=== PATIENT | female | born 1970 | race Caucasian/White ===

== ENCOUNTER 2020-01-21 06:35 | Outpatient (CLI) | payer OTHER, SELFPAY ==
--- NOTE | ~2020-01-21 | MR_ITS ---
EXAMINATION: MR knee RT wo con DATE: 01/21/2020 07:53 INDICATION: Right knee pain TECHNIQUE: Magnetic resonance imaging (MRI) of the right knee was performed without intravenous contr ast. Sequences included coronal PD-weighted FSE, coronal PD-weighted FS FSE, sagittal T2-weighted FS E, sagittal PD-weighted FS FSE and axial PD weighted fat saturated FSE. COMPARISON: None. FINDINGS: Medial compartment: Medial meniscus is normal. Articular cartilage is normal. Lateral compartment: Linear increased signal extending to the inferior articular surface near the free edge of the body of the lateral meniscus which is seen on only a single image not meeting strict criteria for tear in th is remains equivocal for small longitudinal horizontal tear versus artifact. Deep chondral fissure wi th minimal underlying cortical irregularity and negligible subarticular edema along the anterior weig htbearing lateral femoral condyle. Patellofemoral compartment: Deep chondral fissuring with minimal underlying subarticular edema at the medial patellar facet. Juxt aposed region of chondral ulceration and deep fissuring with more prominent mild marrow edema along t he lateral side of the medial trochlea. Ligaments and tendons: Anterior and posterior cruciate ligaments are normal. The medial collateral ligament and fibular ly ateral ligament complex are normal. The extensor mechanism is normal. There is thickening and increas ed fluid signal at the posterior medial epicondylar insertion of the medial head of the gastrocnemius without a discrete retracted tear defect consistent with moderate grade sprain. The visualized media l and lateral hamstring tendons as well as the iliotibial band are normal. Fluid: Physiologic amount of fluid in the joint space. Trace amount of fluid within a small Blanton's cyst. Osseous/other: Bone alignment is normal. No fracture or pathologic marrow replacing process. IMPRESSION: 1. Linear signal at the body of the lateral meniscus seen on only one image which is indeterminate fo r artifact versus small longitudinal horizontal tear. 2. 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 Line 3. Moderate grade sprain/partial tear at the femoral insertion of the medial head of the gastrocnemiu s. Reviewed, dictated and finalized at location A. IMPRESSION: 1. Linear signal at the body of the lateral meniscus seen on only one image whi ch is indeterminate for artifact versus small longitudinal horizontal tear. 2. Mild osteoarthritis with regions of high grade chondromalacia at the medial patellar facet and medial trochlea and tiny focus of high-grade chondromalacia at the anterior weightbearing lateral femoral condyle. Line 3. Moderate grade sprain/partial tear at the femoral insertion of the medial he ad of the gastrocnemius.
== END 2020-01-21 06:36 | disposition home or self-care (01) ==
DX: M17.11 Unilateral primary osteoarthritis, right knee (principal); S86.811A Strain of other muscle(s) and tendon(s) at lower leg level, right leg, initial encounter; X58.XXXA Exposure to other specified factors, initial encounter
CPT/HCPCS: 73721